=== PATIENT | male | born 1975 | race American Indian/Alaskan Native ===

== ENCOUNTER 2016-10-18 20:06 | Emergency (ER) | payer MEDICARE ==
[2016-10-18 20:42] LABS: Basophils % (Auto) 0.6 % (0.0-1.8); Eosinophils % (Auto) 1.3 % (0.0-4.3); Hematocrit 40.5 % (35.5-45.6); Hemoglobin 13.2 gm/dl (11.8-15.2); Mean Corpuscular HGB Conc 33 % (32-34); Mean Corpuscular Hemoglobin 30 pg (28-32); Mean Corpuscular Volume 92 fl (84-94); Platelet Count 149 K/mm3 (140-440); Red Cell Distribution Width 13.2 % (13.2-15.2); White Blood Count 4.4 K/mm3 (4.5-11.0)
[2016-10-18 20:56] LABS: Bilirubin,Urine NEG (Negative); Blood,Urine NEG (Negative); Ketones,Urine NEG (Negative); Leukocyte Esterase,Urine TR (Negative); Mucus,Urine FEW /HPF; Nitrite,Urine NEG (Negative); Sperm,Urine 1+ /HPF (NP)
[2016-10-18 21:02] LABS: BUN/Creatinine Ratio 7.77; Blood Urea Nitrogen 7 mg/dL (9-20); Calcium 8.8 mg/dL (8.4-10.2); Carbon Dioxide 27 mmol/L (22-30); Glucose 99 mg/dL (75-100)
[2016-10-18 21:03] LABS: Anion Gap 21 mmol/L; Chloride 100.9 mmol/L (98-107); Potassium 3.7 mmol/L (3.6-5.0); Sodium 145 mmol/L (137-145)
[2016-10-19] MEDS ORDERED: NACL 0.9% 1000 ML 1,000 ML IV ONE (03:03)
[2016-10-19] MEDS ORDERED: PEPCID IV ONE (03:03)
[2016-10-19] MEDS ORDERED: ZOFRAN IV ONE (03:03)
--- NOTE | 2016-10-19 03:09 | Emergency Department Report ---
HPI - General Chief Complaint: Nausea/Vomiting/Diarrhea Time Seen by Provider: 10/19/16 02:57 - HPI HPI: Room 4 The patient is a 41-year-old male presenting with a chief complaint of nausea vomiting diarrhea. The patient states 2 nights ago after eating food at [employer] approximately 30 minutes later he developed nausea and vomiting and some diarrhea. Patient denies abdominal pain or fever. Patient states he currently feels "queasy" and "a little chilly" but is otherwise asymptomatic Location: Gastrointestinal system Duration: 3 days Quality: Nausea Severity: Moderate Modifying factors: [see above] Context: [see above] Mode of transportation: Unknown ED Past Medical Hx - Past Medical History Previous Medical History?: Yes Hx Hypertension: Yes Hx Diabetes: Yes Hx Psychiatric Treatment: Yes Additional medical history: Patient denies any psychiatric condition but has been here several times for mental health evaluations - Surgical History Past Surgical History?: No Additional Surgical History: surgery on diaphram at . - Family History Family history: no significant - Social History Smoking Status: Never Smoker Substance Use Type: None (denies illicit drug use), Alcohol (occasional) - Medications Home Medications: Home Medications Medication Instructions Recorded Confirmed Last Taken Type Ibuprofen [Motrin] 600 mg PO Q8H PRN #50 tablet 06/06/14 Unknown Rx predniSONE [Deltasone] 40 mg PO QDAY #10 tab 06/06/14 Unknown Rx traMADol [Ultram] 50 mg PO Q6HR PRN #20 tablet 06/06/14 Unknown Rx Diphenoxylate HCl/Atropine 2 each PO QID PRN #20 tablet 10/19/16 Unknown Rx [Lomotil 2.5-0.025 mg Tablet] Promethazine [Phenergan TAB] 25 mg PO Q6HR PRN #20 tab 10/19/16 Unknown Rx Promethazine [Phenergan] 25 mg IN Q6HR PRN #5 supp.rect 10/19/16 Unknown Rx ED Review of Systems ROS: Stated complaint: LIGHTHEADED Other details as noted in HPI Comment: All other systems reviewed and negative Constitutional: chills. denies: fever Eyes: denies: eye pain, eye discharge, vision change ENT: denies: ear pain, throat pain Respiratory: denies: cough, shortness of breath, wheezing Cardiovascular: as per HPI Endocrine: no symptoms reported Gastrointestinal: nausea, vomiting, diarrhea. denies: abdominal pain Genitourinary: denies: urgency, dysuria Musculoskeletal: denies: back pain, joint swelling, arthralgia Skin: denies: rash, lesions Neurological: denies: headache, weakness, paresthesias Psychiatric: denies: anxiety, depression Hematological/Lymphatic: denies: easy bleeding, easy bruising Physical Exam - Physical Exam Vital Signs: Vital Signs 10/18/16 10/19/16 10/19/16 20:09 01:35 01:37 Temperature 98.7 F 97.9 F Pulse Rate 98 H Respiratory 17 Rate Blood Pressure 123/84 123/88 O2 Sat by Pulse 99 Oximetry 10/19/16 10/19/16 10/19/16 01:38 01:41 02:00 Temperature Pulse Rate Respiratory 18 Rate Blood Pressure 123/88 119/81 O2 Sat by Pulse 98 99 100 Oximetry 10/19/16 02:30 Temperature Pulse Rate Respiratory Rate Blood Pressure 116/79 O2 Sat by Pulse 100 Oximetry Physical Exam: GENERAL: The patient is well-developed well-nourished male lying on stretcher not appearing to be in acute distress. [] HEENT: Normocephalic. Atraumatic. Extraocular motions are intact. Patient has moist mucous membranes. NECK: Supple. Trachea midline CHEST/LUNGS: Clear to auscultation. There is no respiratory distress noted. HEART/CARDIOVASCULAR: Regular. There is no tachycardia. There is no gallop rub or murmur. ABDOMEN: Abdomen is soft, nontender. Patient has normal bowel sounds. There is no abdominal distention. SKIN: There is no rash. There is no edema. There is no diaphoresis. NEURO: The patient is awake, alert, and oriented. The patient is cooperative. The patient has normal speech MUSCULOSKELETAL: There is no evidence of acute injury. ED Course Vital Signs 10/18/16 10/19/16 10/19/16 20:09 01:35 01:37 Temperature 98.7 F 97.9 F Pulse Rate 98 H Respiratory 17 Rate Blood Pressure 123/84 123/88 O2 Sat by Pulse 99 Oximetry 10/19/16 10/19/16 10/19/16 01:38 01:41 02:00 Temperature Pulse Rate Respiratory 18 Rate Blood Pressure 123/88 119/81 O2 Sat by Pulse 98 99 100 Oximetry 10/19/16 02:30 Temperature Pulse Rate Respiratory Rate Blood Pressure 116/79 O2 Sat by Pulse 100 Oximetry ED Medical Decision Making - Lab Data Result diagrams: 10/18/16 20:22 10/18/16 20:22 Laboratory Tests 10/18/16 10/18/16 10/18/16 20:22 20:22 20:22 WBC 4.4 L RBC 4.40 Hgb 13.2 Hct 40.5 MCV 92 MCH 30 MCHC 33 RDW 13.2 Plt Count 149 Lymph % (Auto) 32.1 [place] % (Auto) 8.2 H Eos % (Auto) 1.3 Baso % (Auto) 0.6 Lymph # 1.4 [place] # 0.4 Eos # 0.1 Baso # 0.0 Seg Neutrophils % 57.8 Seg Neutrophils # 2.6 Sodium 145 Potassium 3.7 Chloride 100.9 Carbon Dioxide 27 Anion Gap 21 BUN 7 L Creatinine 0.9 Estimated GFR > 60 BUN/Creatinine Ratio 7.77 Glucose 99 Calcium 8.8 Total Bilirubin 0.50 Direct Bilirubin < 0.2 Indirect Bilirubin 0.3 AST 14 ALT 7 Alkaline Phosphatase 44 Total Protein 7.7 Albumin 4.4 Albumin/Globulin Ratio 1.3 Lipase 15 Urine Color Urine Turbidity Urine pH Ur Specific [place] Urine Protein Urine Glucose (UA) Urine Ketones Urine Blood Urine Nitrite Urine Bilirubin Urine Urobilinogen Ur Leukocyte Esterase Urine WBC (Auto) Urine RBC (Auto) U Epithel Cells (Auto) Urine Mucus Urine Sperm 10/18/16 20:40 WBC RBC Hgb Hct MCV MCH MCHC RDW Plt Count Lymph % (Auto) [place] % (Auto) Eos % (Auto) Baso % (Auto) Lymph # [place] # Eos # Baso # Seg Neutrophils % Seg Neutrophils # Sodium Potassium Chloride Carbon Dioxide Anion Gap BUN Creatinine Estimated GFR BUN/Creatinine Ratio Glucose Calcium Total Bilirubin Direct Bilirubin Indirect Bilirubin AST ALT Alkaline Phosphatase Total Protein Albumin Albumin/Globulin Ratio Lipase Urine Color Yellow Urine Turbidity Clear Urine pH 6.0 Ur Specific [place] 1.028 Urine Protein 30 mg/dl Urine Glucose (UA) Neg Urine Ketones Neg Urine Blood Neg Urine Nitrite Neg Urine Bilirubin Neg Urine Urobilinogen 4.0 Ur Leukocyte Esterase Tr Urine WBC (Auto) 4.0 Urine RBC (Auto) 5.0 U Epithel Cells (Auto) < 1.0 Urine Mucus Few Urine Sperm 1+ - Radiology Data Radiology results: report reviewed (two-view abdominal x-ray), image reviewed ( two-view abdominal x-ray) interpreted by me: Two-view abdominal x-ray-no free air. Multiple scattered air-fluid levels Two-view abdominal x-ray (read by radiologist)-no pneumoperitoneum or evident small bowel obstruction. Fluid within the nondilated colon is compatible with reported diarrheal disease - Differential Diagnosis gastroenteritis, foodborne illness Critical care attestation.: If time is entered above; I have spent that time in minutes in the direct care of this critically ill patient, excluding procedure time. ED Disposition Clinical Impression: Acute gastroenteritis Disposition: DC- TO HOME OR SELFCARE Is pt being admited?: No Does the pt Need Aspirin: No Condition: Stable Instructions: Gastroenteritis (ED), Acute Nausea and Vomiting (ED) Additional Instructions: Return to the emergency department immediately should you develop worsening symptoms, fever, inability to tolerate food or liquid or any other concerns. 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 Please follow up with him for further evaluation) Time of Disposition: 04:30
[2016-10-19 03:16] LABS: Alanine Aminotransferase 7 units/L (7-56); Albumin 4.4 g/dL (3.9-5); Albumin/Globulin Ratio 1.3 %; Alkaline Phosphatase 44 units/L (35-129); Lipase 15 units/L (13-60); Total Protein 7.7 g/dL (6.3-8.2)
[2016-10-19 03:22] LABS: Bilirubin,Direct < 0.2 mg/dL (0-0.2); Bilirubin,Indirect 0.3 mg/dL
[2016-10-19] MEDS ORDERED: REGLAN IV ONE (03:51)
--- NOTE | 2016-10-19 04:22 | XRay Report ---
FINAL REPORT EXAM: XR ABDOMEN 2V HISTORY: nausea vomiting diarrhea COMPARISONS: None. FINDINGS: AP upright and supine views of the abdomen and pelvis Fluid is seen throughout much of the nondilated colon. No pneumoperitoneum. No evidence of small bowel obstruction. No pathologic calcification or fracture. IMPRESSION: No pneumoperitoneum or evident small bowel obstruction. Fluid within the nondilated colon is compatible with reported diarrheal disease.
[2016-10-19 04:56] VITALS: BP 120/82
== END 2016-10-19 04:58 | disposition home or self-care (01) ==
LOC: ED 20:06
DX: K52.9 Noninfective gastroenteritis and colitis, unspecified (principal); I10 Essential (primary) hypertension; E11.9 Type 2 diabetes mellitus without complications
CPT/HCPCS: 36415; 74020; 80048; 80074; 81001; 83690; 85025; 96361; 96374; 96375; 99284; J2405; J2765; J7030